=== PATIENT | male | born 1975 | race Caucasian/White ===

== ENCOUNTER 2018-08-26 23:36 | Emergency (ER) | payer SELFPAY ==
[~2018-08-26] VITALS: Ht 170.2 cm; Wt 75.0 kg
[~2018-08-26 23:36] MED LIST: AMLODIPINE10 MG PO; HYDROCHLOROT25 MG PO
[2018-08-27 00:59] LABS: IMMATURE GRANULOCYTES 0.5 % (0.0-5.0); MEAN CELL VOLUME 87.8 fL CALC (80.0-100.0); MEAN CORPUSCULAR HGB 29.9 pG CALC (26.0-32.0); MEAN CORPUSCULAR HGB CONC 34.1 g/L CALC (32.0-36.0); NEUT# 10.24 thou/uL (1.82-7.42); RED BLOOD COUNT 5.01 mill/uL (4.70-6.10); RED CELL DISTRI WIDTH 12.5 % (11.5-15.5)
[2018-08-27 01:13] LABS: ALBUMIN 4.2 g/dL (3.2-5.0); ALKALINE PHOSPHATASE 49 u/l (38-126); ANION GAP 14 (6-22 (CALC)); BILIRUBIN, TOTAL 0.3 mg/dL (0.0-1.4); BUN 26 mg/dL (9-20); BUN/CREATININE RATIO 19 (12-20 (CALC)); CARBON DIOXIDE 26 mmol/l (22-30); CHLORIDE 106 mmol/l (95-108); CREATININE 1.3 mg/dL (0.7-1.3); GFR > 60 ML/MIN (>=60 (CALC)); GFR FOR AFR.AMER. > 60 ML/MIN (>=60 (CALC)); POTASSIUM 4.2 mmol/l (3.5-5.1); SGOT/AST 22 u/l (17-59); SODIUM 142 mmol/l (137-146); TOTAL PROTEIN 6.9 g/dL (6.3-8.2)
[2018-08-27] MEDS ORDERED: LISINOPRIL20 MG PO (01:18)
[2018-08-27 01:25] LABS: MYOGLOBIN 321 ng/mL (0 - 121)
[2018-08-27 02:56] LABS: BARBITURATES NEGATIVE (NEGATIVE); COCAINE NEGATIVE (NEGATIVE); METHADONE NEGATIVE (NEGATIVE); OXCYCODONE NEGATIVE (NEGATIVE); TETRAHYDROCANNABIONOL POSITIVE (NEGATIVE); TRICYLIC ANTIDEPRESSANTS NEGATIVE (NEGATIVE)
[2018-08-27] MEDS ORDERED: KEFLEX500 M1 PO (03:06)
[2018-08-27] MEDS ORDERED: IBUPROFEN600 MG PO (03:07)
[2018-08-27] MEDS ORDERED: FEVER REDUCER120 MG PR (03:07)
[2018-08-27 03:40] VITALS: BP 119/79
== END 2018-08-27 03:40 | DRG 605 ==
LOC: ED 23:36
PROVIDERS: Emergency Medicine
DX: S20.222A Contusion of left back wall of thorax, initial encounter (principal); S20.412A Abrasion of left back wall of thorax, initial encounter; S91.312A Laceration without foreign body, left foot, initial encounter; R94.31 Abnormal electrocardiogram [ECG] [EKG]; Y35.893A Legal intervention involving other specified means, suspect injured, initial encounter; Y92.410 Unspecified street and highway as the place of occurrence of the external cause